=== PATIENT | female | born 1980 | race African-American/Black ===

== ENCOUNTER 2016-08-07 21:08 | Emergency (ER) | payer MEDICAID, OTHER ==
[~2016-08-07] VITALS: Ht 167.6 cm; Wt 108.9 kg
[2016-08-07] MEDS ORDERED: cloNIDine HCL 0.1 MG TAB PO ONE (21:15)
[2016-08-07 21:37] LABS: Basophils # (auto) 0 uL; Basophils % (auto) 0.7 % (0.0-2.0); Eosinophils # (auto) 0.2 uL; Eosinophils % (auto) 3.4 % (0.0-7.0); Hematocrit 40.9 % (36.0-46.0); Hemoglobin 13.6 g/dL (12.2-16.2); Lymphocytes # (auto) 1.9 uL; Mean Corpuscular Hgb Conc. 33.2 g/dL (32.0-36.0); Mean Corpuscular Volume 87.6 fL (80.0-100.0); Mean Platelet Volume 8.8 fL (7.4-10.4); Monocytes # (auto) 0.3 uL; Monocytes % (auto) 5.1 % (0.0-12.0); Neutrophils # (auto) 2.9 uL; Neutrophils % (auto) 54.8 % (37.0-80.0); Platelet Count (auto) 259 10^3/uL (140-450); Red Cell Distribution Width 15.7 % (11.6-16.0); White Blood Cell 5.3 10^3/uL (4.4-10.8)
[2016-08-07 21:53] LABS: Albumin 3.7 g/dL (3.4-5.0); BUN/Creatinine Ratio 22.6; Bilirubin, Total 0.3 mg/dL (0.2-1.0); Calcium 9.2 mg/dL (8.5-10.1); Potassium 3.9 mmol/L (3.5-5.1); Total Protein 6.9 g/dL (6.4-8.2)
[2016-08-07 22:02] LABS: INR 1.01 (0.9-1.15); Partial Thromboplastin Time 25.8 sec (22.64-33.71); Prothrombin Time 10.4 sec (9.37-12.3)
[2016-08-07 22:03] LABS: B-Type Natriuretic Peptide 225.6 pg/mL (0-100); Temperature: 22.7 C (20.0-25.0)
[2016-08-08] MEDS ORDERED: LISINOPRIL 20 MG TAB PO ONE (09:30)
[2016-08-08 10:02] VITALS: BP 147/114
== END 2016-08-08 10:27 | disposition home or self-care (01) ==
LOC: EDBD 21:08 → ER 21:11
DX: I10 Essential (primary) hypertension (principal); F31.9 Bipolar disorder, unspecified; H54.0 Blindness, both eyes; R61 Generalized hyperhidrosis; E66.9 Obesity, unspecified; Z68.38 Body mass index [BMI] 38.0-38.9, adult
CPT/HCPCS: 36415; 80053; 81025; 83880; 84484; 85025; 85610; 85730; 93005; 99285; G0434; J7040

== ENCOUNTER 2018-03-10 20:00 | Inpatient (IN) | payer MEDICAID ==
[~2018-03-10] VITALS: Ht 167.6 cm; Wt 108.7 kg
[2018-03-10] MEDS ORDERED: cloNIDine HCL 0.1 MG TAB PO ONE (21:00)
[2018-03-10] MEDS ORDERED: GENTAMICIN OPTH sol 0.3% 5ml EACHEYE ONE (21:00)
[2018-03-10 21:02] LABS: Hematocrit 34.7 % (36.0-46.0); Hemoglobin 11.3 g/dL (12.2-16.2); Mean Corpuscular Hemoglobin 29.1 pg (28.0-32.0); Mean Corpuscular Hgb Conc. 32.6 g/dL (32.0-36.0); Mean Corpuscular Volume 89.2 fL (80.0-100.0); Platelet Count (auto) 146 10^3/uL (140-450); Red Blood Cells 3.88 10^6/uL (4.0-5.20); Red Cell Distribution Width 18.5 % (11.8-14.3); White Blood Cell 5.2 10^3/uL (4.4-10.8)
[2018-03-10 21:06] LABS: Basophils % (manual) 0 (0.0-2.0); Blast Cells 0; Eosinophils % (manual) 0 (0-7); Metamyelocytes % 0; Myelocytes % 0; Promyelocytes % 0; Reactive Lymphocytes 0
[2018-03-10 21:12] LABS: Alanine Aminotransferase 40 U/L (13-56); Albumin 2.9 g/dL (3.4-5.0); Anion Gap 11 (5-15); Aspartate Aminotransferase 36 U/L (15-37); BUN/Creatinine Ratio 12.8; Blood Alcohol < 3.0 mg/dL (0-5); Blood Urea Nitrogen 15 mg/dL (7-18); Calcium 8.7 mg/dL (8.5-10.1); Carbon Dioxide 29 mmol/L (21-32); Chloride 107 mmol/L (98-107); GFR African American 67 mL/min; GFR Non-African American 56 mL/min; Glucose 98 mg/dL (74-106); Magnesium 2.1 mg/dL (1.6-2.6); Potassium 3.4 mmol/L (3.5-5.1); Sodium 147 mmol/L (136-145)
[2018-03-10 21:12] LABS: Lactic Acid w/Reflex 3.1 mmol/L (0.4-2.0)
[2018-03-10 21:16] LABS: Alkaline Phosphatase 44 U/L (45-117); Bilirubin, Total 0.5 mg/dL (0.2-1.0); Total Protein 7.3 g/dL (6.4-8.2)
[2018-03-10] MEDS ORDERED: cloNIDine HCL 0.1 MG TAB ONE (21:16)
[2018-03-10 21:41] LABS: Alcohol, Urine < 3.0 mg/dL (0-5); Amphetamine Screen, Urine NEGATIVE (NEGATIVE); Barbiturate Scree,Urine NEGATIVE (NEGATIVE); Benzodiazephine Screen, Urine POSITIVE (NEGATIVE); Cannabinoid Screen, Urine NEGATIVE (NEGATIVE); Cocaine Screen, Urine NEGATIVE (NEGATIVE); Opiate Scree,Urine NEGATIVE (NEGATIVE); Phencyclidine Screen, Urine NEGATIVE (NEGATIVE)
[2018-03-10 21:46] LABS: Acetaminophen < 2.0 ug/mL (10-30); Salicylate < 1.7 mg/dL (2.8-20.0)
[2018-03-10 21:57] LABS: Urine Bacteria NONE SEEN /hpf (None Seen); Urine Blood Negative /uL (Negative); Urine Mucus FEW (None Seen); Urine Specific Gravity 1.016 (1.001-1.035); Urine WBC 1 /hpf (0 - 5)
[2018-03-10 22:00] VITALS: BP 123/58
[2018-03-10 22:00] LABS: Band Neutrophils % (manual) 2; Lymphocytes % (manual) 12 (10.0-50.0); Monocytes % (manual) 26 (0-12)
[2018-03-10] MEDS ORDERED: LEVOFLOXACIN 750MG 150 ML IV ONE (23:15)
[2018-03-10] MEDS ORDERED: IOHEXOL 350 MG/ML 100ML IJ ONE (23:16)
[2018-03-10] MEDS ORDERED: MORPHINE SULF INJ 2 MG/ML SYRINGE 1ML IV PRN (23:45)
[2018-03-10] MEDS ORDERED: NITROGLYCERIN 0.4 MG SL TAB SL ONE (23:45)
[2018-03-10] MEDS ORDERED: NITROGLYCERIN 0.4 MG SL TAB SL PRN (23:45)
[2018-03-10] MEDS ORDERED: cloNIDine HCL 0.1 MG TAB PO PRN (23:45)
[2018-03-10] MEDS ORDERED: ASPirin-EC 325mg tab PO ONE (23:45)
[2018-03-11] VITALS (8 sets, daily range): BP systolic 141–189; BP diastolic 86–113
[2018-03-11] MEDS ORDERED: RISP2TAB62 PO (05:09)
[2018-03-11] MEDS ORDERED: SERT-274 PO (05:10)
[2018-03-11] MEDS ORDERED: OLAN10TA29 PO (05:11)
[2018-03-11] MEDS ORDERED: BENZ2TAB2 PO (05:16)
[2018-03-11] MEDS ORDERED: DIVA500T4 PO (05:16)
[2018-03-11] MEDS ORDERED: CLON1TAB PO (05:16)
[2018-03-11] MEDS ORDERED: METOPROLOL TARTRATE 50 MG TAB PO ONE (07:00)
[2018-03-11] MEDS ORDERED: AZITHROMYCIN 500MG/ 250ML 250 ML IV ONE (07:00)
[2018-03-11] MEDS: SOD CHL 0.45% WITH 20MEQ KCL 1,000 ML IV SCH ×2 (07:43→22:48)
[2018-03-11 08:26] LABS: Hematocrit 34.1 % (36.0-46.0); Hemoglobin 11.1 g/dL (12.2-16.2); Mean Corpuscular Hemoglobin 29.1 pg (28.0-32.0); Mean Corpuscular Hgb Conc. 32.4 g/dL (32.0-36.0); Mean Corpuscular Volume 89.6 fL (80.0-100.0); Platelet Count (auto) 144 10^3/uL (140-450); Red Blood Cells 3.81 10^6/uL (4.0-5.20); Red Cell Distribution Width 19.1 % (11.8-14.3); White Blood Cell 3.9 10^3/uL (4.4-10.8)
[2018-03-11 08:39] LABS: Band Neutrophils % (manual) 0; Basophils % (manual) 0 (0.0-2.0); Blast Cells 0; Eosinophils % (manual) 0 (0-7); Metamyelocytes % 0; Myelocytes % 0; Promyelocytes % 0; Reactive Lymphocytes 0
[2018-03-11 08:40] LABS: BUN/Creatinine Ratio 14.9; Calcium 8.4 mg/dL (8.5-10.1); INR 1.04 (0.9-1.15); Potassium 3.7 mmol/L (3.5-5.1); Prothrombin Time 11.1 sec (9.27-12.13)
[2018-03-11 09:30] LABS: Lymphocytes % (manual) 39 (10.0-50.0); Monocytes % (manual) 15 (0-12)
[2018-03-11] MEDS ORDERED: LABETALOL HCL 5 MG/ML ML 20ML VIAL IV PRN (09:30)
[2018-03-11] MEDS ORDERED: ASPirin 81 mg TAB PO SCH (10:00)
[2018-03-11] MEDS ORDERED: METOPROLOL TARTRATE 50 MG TAB PO SCH (10:00)
[2018-03-11] MEDS ORDERED: amLODIPine BESYLATE 5 MG TAB PO SCH (10:00)
[2018-03-11] MEDS: ASPirin 81 mg TAB PO SCH (10:37)
[2018-03-11] MEDS: cefTRIAXone 1GM/10ml IVPUSH 10 ML IV SCH (10:37)
[2018-03-11] MEDS: LABETALOL HCL 5 MG/ML ML 20ML VIAL IV SCH ×4 (10:38→22:53)
[2018-03-11] MEDS: amLODIPine BESYLATE 5 MG TAB PO SCH (12:34)
[2018-03-11] MEDS ORDERED: LISINOPRIL 20 MG TAB PO ONE (17:45)
[2018-03-11] MEDS: ATORVASTATIN 20 MG TAB PO SCH ×2 (22:00→22:49)
[2018-03-11] MEDS: METOPROLOL TARTRATE 50 MG TAB PO SCH (22:50)
[2018-03-11] MEDS: LISINOPRIL 20 MG TAB PO SCH (22:51)
[2018-03-12] MEDS ORDERED: METOPROLOL TARTRATE 50 MG TAB PO ONE (01:30)
[2018-03-12] MEDS ORDERED: AZITHROMYCIN 500MG/ 250ML 250 ML IV ONE (01:30)
[2018-03-12] MEDS ORDERED: SODIUM CHLORIDE 0.9% 1,000 ML IV ONE (01:30)
[2018-03-12] MEDS ORDERED: LEVOFLOXACIN 750MG 150 ML IV ONE (01:30)
[2018-03-12] MEDS ORDERED: SOD CHL 0.45% WITH 20MEQ KCL 1,000 ML IV SCH (01:30)
[2018-03-12] MEDS: LABETALOL HCL 5 MG/ML ML 20ML VIAL IV SCH ×6 (03:04→23:06)
[2018-03-12 05:00] VITALS: BP 148/81
[2018-03-12 06:58] LABS: Hematocrit 33.2 % (36.0-46.0); Hemoglobin 11.1 g/dL (12.2-16.2); Mean Corpuscular Hemoglobin 29.7 pg (28.0-32.0); Mean Corpuscular Hgb Conc. 33.4 g/dL (32.0-36.0); Mean Corpuscular Volume 88.9 fL (80.0-100.0); Platelet Count (auto) 140 10^3/uL (140-450); Red Blood Cells 3.73 10^6/uL (4.0-5.20); Red Cell Distribution Width 18.2 % (11.8-14.3); White Blood Cell 4.2 10^3/uL (4.4-10.8)
[2018-03-12 07:12] LABS: Band Neutrophils % (manual) 0; Basophils % (manual) 0 (0.0-2.0); Blast Cells 0; Eosinophils % (manual) 0 (0-7); Metamyelocytes % 0; Myelocytes % 0; Promyelocytes % 0; Reactive Lymphocytes 0
[2018-03-12 07:24] LABS: Albumin 2.5 g/dL (3.4-5.0); BUN/Creatinine Ratio 14.3; Bilirubin, Total 0.6 mg/dL (0.2-1.0); Calcium 8.4 mg/dL (8.5-10.1); Potassium 3.7 mmol/L (3.5-5.1); Total Protein 6.6 g/dL (6.4-8.2)
[2018-03-12 07:51] LABS: Lymphocytes % (manual) 25 (10.0-50.0); Monocytes % (manual) 28 (0-12)
[2018-03-12] MEDS: cefTRIAXone 1GM/10ml IVPUSH 10 ML IV SCH (08:44)
[2018-03-12] MEDS: traMADol HCL 50 MG TAB PO PRN (08:44)
[2018-03-12 09:00] VITALS: BP 128/68
[2018-03-12] MEDS: SOD CHL 0.45% WITH 20MEQ KCL 1,000 ML IV SCH ×2 (09:40→23:08)
[2018-03-12] MEDS ORDERED: AZITHROMYCIN 500MG/ 250ML 250 ML IV SCH (10:00)
[2018-03-12] MEDS ORDERED: VANCOMYCIN PER PHARMACY 0 MG IV SCH (10:15)
[2018-03-12] MEDS: ASPirin 81 mg TAB PO SCH (10:27)
[2018-03-12] MEDS: AZITHROMYCIN 500MG/ 250ML 250 ML IV SCH (10:27)
[2018-03-12] MEDS: risperiDONE 1 MG TAB PO SCH ×2 (10:28→23:07)
[2018-03-12] MEDS: SERTRALINE HCL 50 MG TAB PO SCH (10:28)
[2018-03-12] MEDS: VANCOMYCIN 1,250 MG in D5W 5% 250 ML IV SCH ×2 (11:47→19:39)
[2018-03-12 13:00] VITALS: BP 156/95
[2018-03-12] MEDS: METOPROLOL TARTRATE 50 MG TAB PO SCH ×2 (14:20→23:07)
[2018-03-12] MEDS: LISINOPRIL 20 MG TAB PO SCH ×2 (14:22→23:08)
[2018-03-12] MEDS: amLODIPine BESYLATE 5 MG TAB PO SCH (14:23)
[2018-03-12 17:00] VITALS: BP 167/109
[2018-03-12 22:00] VITALS: BP 180/118
[2018-03-12] MEDS: ATORVASTATIN 20 MG TAB PO SCH (23:07)
[2018-03-13] VITALS (8 sets, daily range): BP systolic 121–180; BP diastolic 86–118
[2018-03-13] MEDS: LABETALOL HCL 5 MG/ML ML 20ML VIAL IV SCH ×6 (02:34→22:48)
[2018-03-13] MEDS: traMADol HCL 50 MG TAB PO PRN (06:06)
[2018-03-13 07:16] LABS: Potassium 4.1 mmol/L (3.5-5.1)
[2018-03-13 07:20] LABS: Albumin 2.3 g/dL (3.4-5.0); BUN/Creatinine Ratio 13.1; Calcium 8.4 mg/dL (8.5-10.1)
[2018-03-13 07:23] LABS: Bilirubin, Total 0.6 mg/dL (0.2-1.0); Total Protein 6.6 g/dL (6.4-8.2)
[2018-03-13 07:47] LABS: Hematocrit 31.9 % (36.0-46.0); Hemoglobin 10.7 g/dL (12.2-16.2); Mean Corpuscular Hemoglobin 29.7 pg (28.0-32.0); Mean Corpuscular Hgb Conc. 33.7 g/dL (32.0-36.0); Mean Corpuscular Volume 88.3 fL (80.0-100.0); Platelet Count (auto) 162 10^3/uL (140-450); Red Blood Cells 3.61 10^6/uL (4.0-5.20); Red Cell Distribution Width 18.9 % (11.8-14.3); White Blood Cell 4.7 10^3/uL (4.4-10.8)
[2018-03-13 07:51] LABS: Band Neutrophils % (manual) 0; Basophils % (manual) 0 (0.0-2.0); Blast Cells 0; Metamyelocytes % 0; Myelocytes % 0; Promyelocytes % 0; Reactive Lymphocytes 0
[2018-03-13 08:10] LABS: Eosinophils % (manual) 1 (0-7); Lymphocytes % (manual) 26 (10.0-50.0); Monocytes % (manual) 21 (0-12)
[2018-03-13] MEDS: SERTRALINE HCL 50 MG TAB PO SCH (09:38)
[2018-03-13] MEDS: cefTRIAXone 1GM/10ml IVPUSH 10 ML IV SCH (09:38)
[2018-03-13] MEDS: ASPirin 81 mg TAB PO SCH (09:39)
[2018-03-13] MEDS: risperiDONE 1 MG TAB PO SCH ×2 (09:39→21:25)
[2018-03-13] MEDS: METOPROLOL TARTRATE 50 MG TAB PO SCH ×2 (09:41→21:30)
[2018-03-13] MEDS: LISINOPRIL 20 MG TAB PO SCH ×2 (09:42→21:24)
[2018-03-13] MEDS: AZITHROMYCIN 500MG/ 250ML 250 ML IV SCH (09:43)
[2018-03-13] MEDS: amLODIPine BESYLATE 5 MG TAB PO SCH (09:43)
[2018-03-13] MEDS: VANCOMYCIN 1,250 MG in D5W 5% 250 ML IV SCH ×2 (11:55→23:33)
[2018-03-13] MEDS: SOD CHL 0.45% WITH 20MEQ KCL 1,000 ML IV SCH ×2 (12:32→23:33)
[2018-03-13] MEDS: ATORVASTATIN 20 MG TAB PO SCH (21:25)
[2018-03-13] MEDS ORDERED: LORazepam 2MG/ML-1ML VIAL IV PRN (21:45)
[2018-03-14] MEDS: LABETALOL HCL 5 MG/ML ML 20ML VIAL IV SCH ×5 (03:00→18:48)
[2018-03-14 05:00] VITALS: BP 137/90
[2018-03-14 07:26] LABS: Basophils # (auto) 0.1 uL; Basophils % (auto) 1.2 % (0.0-2.0); Eosinophils # (auto) 0.2 uL; Eosinophils % (auto) 4.5 % (0.0-7.0); Hematocrit 33.3 % (36.0-46.0); Hemoglobin 11.2 g/dL (12.2-16.2); Lymphocytes # (auto) 1.3 uL; Lymphocytes % (auto) 25.9 % (10.0-50.0); Mean Corpuscular Hemoglobin 29.4 pg (28.0-32.0); Mean Corpuscular Hgb Conc. 33.5 g/dL (32.0-36.0); Monocytes # (auto) 0.8 uL; Monocytes % (auto) 16.7 % (0.0-12.0); Neutrophils # (auto) 2.6 uL; Neutrophils % (auto) 51.7 % (37.0-80.0); Nucleated Red Blood Cells % 0.1 %; Platelet Count (auto) 196 10^3/uL (140-450); Red Blood Cells 3.79 10^6/uL (4.0-5.20); Red Cell Distribution Width 18.5 % (11.8-14.3)
[2018-03-14 07:48] LABS: Albumin 2.7 g/dL (3.4-5.0); BUN/Creatinine Ratio 15.2; Bilirubin, Total 0.6 mg/dL (0.2-1.0); Calcium 8.8 mg/dL (8.5-10.1); Total Protein 7.3 g/dL (6.4-8.2)
[2018-03-14 08:00] VITALS: BP 136/96
[2018-03-14 09:00] VITALS: BP 136/96
[2018-03-14] MEDS: AZITHROMYCIN 500MG/ 250ML 250 ML IV SCH (10:55)
[2018-03-14] MEDS: ASPirin 81 mg TAB PO SCH (10:55)
[2018-03-14] MEDS: cefTRIAXone 1GM/10ml IVPUSH 10 ML IV SCH (10:55)
[2018-03-14] MEDS: LISINOPRIL 20 MG TAB PO SCH (10:56)
[2018-03-14] MEDS: risperiDONE 1 MG TAB PO SCH (10:56)
[2018-03-14] MEDS: METOPROLOL TARTRATE 50 MG TAB PO SCH (10:56)
[2018-03-14] MEDS: amLODIPine BESYLATE 5 MG TAB PO SCH (10:57)
[2018-03-14] MEDS: SERTRALINE HCL 50 MG TAB PO SCH (10:57)
[2018-03-14] MEDS ORDERED: VANCOMYCIN 1,500 MG in D5W 5% 250 ML IV SCH (11:00)
[2018-03-14] MEDS: SOD CHL 0.45% WITH 20MEQ KCL 1,000 ML IV SCH (15:00)
[2018-03-14 17:45] VITALS: BP 145/99
== END 2018-03-14 18:50 | disposition home or self-care (01) | DRG 720 ==
LOC: EDBD 20:00 → ER 20:00 → TELE 20:01 → TELE-WESTW 03-11 02:30
PROVIDERS: ADMIT Internal Medicine; ATTEND Internal Medicine
DX: A41.9 Sepsis, unspecified organism (principal); G93.41 Metabolic encephalopathy; J18.9 Pneumonia, unspecified organism; E44.0 Moderate protein-calorie malnutrition; I11.9 Hypertensive heart disease without heart failure; D64.9 Anemia, unspecified; E11.9 Type 2 diabetes mellitus without complications; E66.01 Morbid (severe) obesity due to excess calories; J98.11 Atelectasis; M17.11 Unilateral primary osteoarthritis, right knee; H44.529 Atrophy of globe, unspecified eye; F20.9 Schizophrenia, unspecified; F31.9 Bipolar disorder, unspecified; M71.20 Synovial cyst of popliteal space [Baker], unspecified knee; M67.40 Ganglion, unspecified site; H54.7 Unspecified visual loss; M25.461 Effusion, right knee; F17.200 Nicotine dependence, unspecified, uncomplicated; Z82.49 Family history of ischemic heart disease and other diseases of the circulatory system; Z83.3 Family history of diabetes mellitus; Z91.19 Patient's noncompliance with other medical treatment and regimen; Z68.38 Body mass index [BMI] 38.0-38.9, adult
CPT/HCPCS: 36415; 70450; 71045; 71260; 73700; 80048; 80053; 80202; 80307; 80320; 80329; 81001; 83605; 83735; 84484; 84702; 85007; 85025; 85027; 85610; 85730; 87040; 87081; 87205; 89051; 93005; 93306; 96365; 96375; 96376; 97163; 99291; A6257; J0696; J7060

== ENCOUNTER 2018-03-20 12:10 | Inpatient (IN) | payer MEDICAID ==
[~2018-03-20] VITALS: Ht 167.6 cm; Wt 106.6 kg
[~2018-03-20 12:10] MED LIST: BENZ2TAB2 PO; CLON1TAB PO; DIVA500T4 PO; OLAN10TA29 PO; RISP2TAB62 PO; SERT-274 PO
[2018-03-20] MEDS ORDERED: SODIUM CHLORIDE 0.9% 500 ML IVB ONE (12:49)
[2018-03-20 13:52] LABS: Basophils # (auto) 0 uL; Basophils % (auto) 0.4 % (0.0-2.0); Eosinophils # (auto) 0.1 uL; Eosinophils % (auto) 1.5 % (0.0-7.0); Hematocrit 32.7 % (36.0-46.0); Hemoglobin 10.6 g/dL (12.2-16.2); Lymphocytes # (auto) 0.8 uL; Lymphocytes % (auto) 21.3 % (10.0-50.0); Mean Corpuscular Hemoglobin 28.8 pg (28.0-32.0); Mean Corpuscular Hgb Conc. 32.3 g/dL (32.0-36.0); Monocytes # (auto) 0.3 uL; Monocytes % (auto) 6.8 % (0.0-12.0); Neutrophils # (auto) 2.6 uL; Platelet Count (auto) 185 10^3/uL (140-450); Red Blood Cells 3.67 10^6/uL (4.0-5.20); Red Cell Distribution Width 18.4 % (11.8-14.3); White Blood Cell 3.7 10^3/uL (4.4-10.8)
[2018-03-20 14:09] LABS: Albumin 2.3 g/dL (3.4-5.0); BUN/Creatinine Ratio 15.1; Bilirubin, Total 0.3 mg/dL (0.2-1.0); Calcium 7.9 mg/dL (8.5-10.1); Potassium 3.5 mmol/L (3.5-5.1); Total Protein 5.9 g/dL (6.4-8.2)
[2018-03-20 14:10] LABS: Blood Alcohol < 3.0 mg/dL (0-5)
[2018-03-20] MEDS ORDERED: LEVOFLOXACIN 500MG 100 ML IV ONE (15:30)
[2018-03-20] MEDS ORDERED: CEPH-37 PO (17:56)
[2018-03-20] MEDS ORDERED: LISI-711 PO (17:56)
[2018-03-20] MEDS ORDERED: MET50T PO (17:56)
[2018-03-20] MEDS ORDERED: SERT-135 PO (17:56)
[2018-03-20] MEDS: SODIUM CHLORIDE 0.9% 1,000 ML IV SCH (18:05)
[2018-03-20] MEDS ORDERED: LACTULOSE 20Gm/30ML SOLN PO PRN (18:15)
[2018-03-20] MEDS ORDERED: ACETAMINOPHEN 500 MG TAB PO PRN (18:15)
[2018-03-20] MEDS ORDERED: DEXTROSE (50%) 50ML SYRG IV PRN (18:15)
[2018-03-20] MEDS ORDERED: PROMETHAZINE HCL 25 MG/ML 1ML IV PRN (18:15)
[2018-03-20] MEDS ORDERED: ALBUTEROL SULF 2.5 MG/0.5ML(0.5%) NEB SOLN NEB PRN (18:15)
[2018-03-20] MEDS ORDERED: MORPHINE SULF INJ 2 MG/ML SYRINGE 1ML IV PRN (18:15)
[2018-03-20] MEDS ORDERED: HYDROcodone-ACET 5/325MG TAB PO PRN (18:15)
[2018-03-20] MEDS ORDERED: NITROGLYCERIN 0.4 MG SL TAB SL PRN (18:15)
[2018-03-20] MEDS ORDERED: risperiDONE 1 MG TAB PO PRN (18:30)
[2018-03-20] MEDS ORDERED: ASPirin 81 mg TAB PO ONE (18:30)
[2018-03-20 18:49] LABS: CRP High Sensitivity 0.86 mg/dL (< 0.3)
[2018-03-20 18:55] LABS: Folate (Folic Acid) 9.62 ng/mL (5.38-24)
[2018-03-20] MEDS: cefTRIAXone 1GM/10ml IVPUSH 10 ML IV SCH (20:19)
[2018-03-20] MEDS: BENZTROPINE MESY 0.5 MG TAB PO SCH (21:23)
[2018-03-20] MEDS: ATORVASTATIN 20 MG TAB PO SCH (21:24)
[2018-03-20] MEDS: METOPROLOL TARTRATE 50 MG TAB PO SCH (21:25)
[2018-03-20] MEDS: risperiDONE 1 MG TAB PO SCH (21:26)
[2018-03-20] MEDS: OLANZapine 5 MG TAB PO SCH (21:26)
[2018-03-20] MEDS: clonazePAM 0.5 MG TAB PO SCH (21:27)
[2018-03-20] MEDS: AZITHROMYCIN 500MG/ 250ML 250 ML IV SCH (21:36)
[2018-03-20] MEDS: ACCU-CHEK COMFORT CURVE STRIP VI SCH (23:04)
[2018-03-20] MEDS: InsuLIN REG 1unit/0.01ml Soln (100units/ml) SC SCH (23:18)
[2018-03-21] MEDS: ALBUTEROL SULF 2.5 MG/0.5ML(0.5%) NEB SOLN NEB SCH ×4 (00:40→19:20)
[2018-03-21 03:13] VITALS: BP 145/88
[2018-03-21] MEDS: SODIUM CHLORIDE 0.9% 1,000 ML IV SCH ×2 (06:44→19:05)
[2018-03-21] MEDS: ACCU-CHEK COMFORT CURVE STRIP VI SCH ×4 (06:52→21:39)
[2018-03-21] MEDS: InsuLIN REG 1unit/0.01ml Soln (100units/ml) SC SCH ×4 (06:53→21:39)
[2018-03-21 07:32] LABS: Basophils # (auto) 0 uL; Basophils % (auto) 0.6 % (0.0-2.0); Eosinophils # (auto) 0.1 uL; Eosinophils % (auto) 2.5 % (0.0-7.0); Hematocrit 32.6 % (36.0-46.0); Lymphocytes # (auto) 1.1 uL; Lymphocytes % (auto) 32.1 % (10.0-50.0); Mean Corpuscular Hemoglobin 29.7 pg (28.0-32.0); Mean Corpuscular Hgb Conc. 33.8 g/dL (32.0-36.0); Monocytes # (auto) 0.2 uL; Monocytes % (auto) 6.7 % (0.0-12.0); Neutrophils # (auto) 2.1 uL; Neutrophils % (auto) 58.1 % (37.0-80.0); Nucleated Red Blood Cells % 0.2 %; Platelet Count (auto) 182 10^3/uL (140-450); Red Blood Cells 3.71 10^6/uL (4.0-5.20); White Blood Cell 3.6 10^3/uL (4.4-10.8)
[2018-03-21 07:52] LABS: Cholesterol 145 mg/dL (< 200); HDL Cholesterol 28 mg/dL (40-59); LDL Cholesterol 106 mg/dL (< 100); Triglycerides 155 mg/dL (< 150)
[2018-03-21] MEDS: cefTRIAXone 1GM/10ml IVPUSH 10 ML IV SCH (09:00)
[2018-03-21] MEDS: METOPROLOL TARTRATE 50 MG TAB PO SCH ×2 (10:00→21:31)
[2018-03-21] MEDS: risperiDONE 1 MG TAB PO SCH ×2 (10:00→21:31)
[2018-03-21] MEDS: ASPirin 81 mg TAB PO SCH (10:00)
[2018-03-21] MEDS: AZITHROMYCIN 500MG/ 250ML 250 ML IV SCH (10:00)
[2018-03-21] MEDS: OLANZapine 5 MG TAB PO SCH ×2 (10:00→21:30)
[2018-03-21] MEDS: SERTRALINE HCL 50 MG TAB PO SCH (10:00)
[2018-03-21 13:00] VITALS: BP 125/72
[2018-03-21 14:07] VITALS: BP 125/72
[2018-03-21 17:31] VITALS: BP 134/68
[2018-03-21 20:20] VITALS: BP 134/68
[2018-03-21] MEDS: clonazePAM 0.5 MG TAB PO SCH (21:33)
[2018-03-21] MEDS: ATORVASTATIN 20 MG TAB PO SCH (21:34)
[2018-03-21] MEDS: BENZTROPINE MESY 0.5 MG TAB PO SCH (21:35)
[2018-03-21 22:00] VITALS: BP 170/110
[2018-03-21] MEDS: LABETALOL HCL 5 MG/ML ML 20ML VIAL IV PRN (23:38)
[2018-03-22] MEDS: ALBUTEROL SULF 2.5 MG/0.5ML(0.5%) NEB SOLN NEB SCH ×4 (00:46→19:37)
[2018-03-22] MEDS: LABETALOL HCL 5 MG/ML ML 20ML VIAL IV PRN ×2 (01:59→04:24)
[2018-03-22 05:41] VITALS: BP 150/100
[2018-03-22] MEDS: InsuLIN REG 1unit/0.01ml Soln (100units/ml) SC SCH ×4 (06:35→21:45)
[2018-03-22] MEDS: ACCU-CHEK COMFORT CURVE STRIP VI SCH ×4 (06:35→21:45)
[2018-03-22] MEDS: SODIUM CHLORIDE 0.9% 1,000 ML IV SCH ×2 (07:35→20:05)
[2018-03-22 08:08] LABS: Basophils # (auto) 0 uL; Basophils % (auto) 0.6 % (0.0-2.0); Eosinophils # (auto) 0.1 uL; Eosinophils % (auto) 2.4 % (0.0-7.0); Hematocrit 33.3 % (36.0-46.0); Hemoglobin 11.1 g/dL (12.2-16.2); Lymphocytes # (auto) 1.2 uL; Lymphocytes % (auto) 31.5 % (10.0-50.0); Mean Corpuscular Hemoglobin 29.2 pg (28.0-32.0); Mean Corpuscular Hgb Conc. 33.4 g/dL (32.0-36.0); Mean Corpuscular Volume 87.5 fL (80.0-100.0); Monocytes # (auto) 0.3 uL; Monocytes % (auto) 7.8 % (0.0-12.0); Neutrophils # (auto) 2.2 uL; Neutrophils % (auto) 57.7 % (37.0-80.0); Platelet Count (auto) 174 10^3/uL (140-450); Red Cell Distribution Width 18.1 % (11.8-14.3); White Blood Cell 3.9 10^3/uL (4.4-10.8)
[2018-03-22 08:30] LABS: Albumin 2.6 g/dL (3.4-5.0); Bilirubin, Total 0.4 mg/dL (0.2-1.0); Calcium 8.7 mg/dL (8.5-10.1); Potassium 3.5 mmol/L (3.5-5.1)
[2018-03-22] MEDS: AZITHROMYCIN 500MG/ 250ML 250 ML IV SCH (09:42)
[2018-03-22] MEDS: risperiDONE 1 MG TAB PO SCH ×2 (09:43→21:44)
[2018-03-22] MEDS: cefTRIAXone 1GM/10ml IVPUSH 10 ML IV SCH (09:43)
[2018-03-22] MEDS: LISINOPRIL 10 MG TAB PO SCH ×2 (09:44→21:44)
[2018-03-22] MEDS: METOPROLOL TARTRATE 50 MG TAB PO SCH ×2 (09:45→21:44)
[2018-03-22] MEDS: SERTRALINE HCL 50 MG TAB PO SCH (09:46)
[2018-03-22] MEDS: ASPirin 81 mg TAB PO SCH (09:46)
[2018-03-22] MEDS: OLANZapine 5 MG TAB PO SCH ×2 (09:46→21:45)
[2018-03-22] MEDS ORDERED: LISINOPRIL 20 MG TAB PO SCH (10:00)
[2018-03-22] MEDS: clonazePAM 0.5 MG TAB PO SCH (21:43)
[2018-03-22] MEDS: ATORVASTATIN 20 MG TAB PO SCH (21:43)
[2018-03-22] MEDS: BENZTROPINE MESY 0.5 MG TAB PO SCH (21:43)
[2018-03-22 22:00] VITALS: BP 140/91
[2018-03-23] VITALS (7 sets, daily range): BP systolic 107–152; BP diastolic 38–102
[2018-03-23 01:41] LABS: Urine Bacteria NONE SEEN /hpf (None Seen); Urine Blood Negative /uL (Negative); Urine WBC <1 /hpf (0 - 5)
[2018-03-23 02:12] LABS: Alcohol, Urine < 3.0 mg/dL (0-5); Amphetamine Screen, Urine NEGATIVE (NEGATIVE); Barbiturate Scree,Urine NEGATIVE (NEGATIVE); Benzodiazephine Screen, Urine NEGATIVE (NEGATIVE); Cannabinoid Screen, Urine NEGATIVE (NEGATIVE); Cocaine Screen, Urine NEGATIVE (NEGATIVE); Opiate Scree,Urine NEGATIVE (NEGATIVE); Phencyclidine Screen, Urine NEGATIVE (NEGATIVE)
[2018-03-23] MEDS: InsuLIN REG 1unit/0.01ml Soln (100units/ml) SC SCH ×3 (06:35→22:22)
[2018-03-23] MEDS: ACCU-CHEK COMFORT CURVE STRIP VI SCH ×3 (06:35→22:22)
[2018-03-23] MEDS: ALBUTEROL SULF 2.5 MG/0.5ML(0.5%) NEB SOLN NEB SCH ×4 (06:50→19:28)
[2018-03-23 07:52] LABS: BUN/Creatinine Ratio 14.8; Calcium 8.5 mg/dL (8.5-10.1); Potassium 3.8 mmol/L (3.5-5.1)
[2018-03-23] MEDS: METOPROLOL TARTRATE 50 MG TAB PO SCH ×2 (10:00→22:23)
[2018-03-23] MEDS: SODIUM CHLORIDE 0.9% 1,000 ML IV SCH ×2 (10:08→21:05)
[2018-03-23] MEDS: AZITHROMYCIN 500MG/ 250ML 250 ML IV SCH (10:08)
[2018-03-23] MEDS: cefTRIAXone 1GM/10ml IVPUSH 10 ML IV SCH (10:08)
[2018-03-23] MEDS: SERTRALINE HCL 50 MG TAB PO SCH (10:09)
[2018-03-23] MEDS: ASPirin 81 mg TAB PO SCH (10:09)
[2018-03-23] MEDS: risperiDONE 1 MG TAB PO SCH ×2 (10:09→22:24)
[2018-03-23] MEDS: OLANZapine 5 MG TAB PO SCH ×2 (10:09→22:24)
[2018-03-23] MEDS: LISINOPRIL 10 MG TAB PO SCH ×2 (10:10→22:24)
[2018-03-23] MEDS: clonazePAM 0.5 MG TAB PO SCH (22:23)
[2018-03-23] MEDS: BENZTROPINE MESY 0.5 MG TAB PO SCH (22:23)
[2018-03-23] MEDS: ATORVASTATIN 20 MG TAB PO SCH (22:23)
[2018-03-24 05:00] VITALS: BP 129/89
[2018-03-24] MEDS: ALBUTEROL SULF 2.5 MG/0.5ML(0.5%) NEB SOLN NEB SCH ×4 (06:01→19:00)
[2018-03-24] MEDS: ACCU-CHEK COMFORT CURVE STRIP VI SCH ×4 (06:28→22:22)
[2018-03-24] MEDS: InsuLIN REG 1unit/0.01ml Soln (100units/ml) SC SCH ×4 (06:28→22:00)
[2018-03-24 08:00] VITALS: BP 129/89
[2018-03-24] MEDS ORDERED: ADENOSINE 89 MG in GIVE UN-DILUTED 0 ML IV STA (08:30)
[2018-03-24] MEDS: cefTRIAXone 1GM/10ml IVPUSH 10 ML IV SCH (09:00)
[2018-03-24 09:23] VITALS: BP 133/91
[2018-03-24] MEDS: SODIUM CHLORIDE 0.9% 1,000 ML IV SCH ×2 (09:35→22:34)
[2018-03-24] MEDS: OLANZapine 5 MG TAB PO SCH ×2 (10:00→22:19)
[2018-03-24] MEDS: LISINOPRIL 10 MG TAB PO SCH ×2 (10:00→22:17)
[2018-03-24] MEDS: SERTRALINE HCL 50 MG TAB PO SCH (10:00)
[2018-03-24] MEDS: AZITHROMYCIN 500MG/ 250ML 250 ML IV SCH (10:00)
[2018-03-24] MEDS: risperiDONE 1 MG TAB PO SCH ×2 (10:00→22:17)
[2018-03-24] MEDS: ASPirin 81 mg TAB PO SCH (10:00)
[2018-03-24] MEDS: METOPROLOL TARTRATE 50 MG TAB PO SCH ×2 (10:00→22:19)
[2018-03-24 13:00] VITALS: BP 128/89
[2018-03-24 20:15] VITALS: BP 197/105
[2018-03-24] MEDS: BENZTROPINE MESY 0.5 MG TAB PO SCH (22:14)
[2018-03-24] MEDS: clonazePAM 0.5 MG TAB PO SCH (22:16)
[2018-03-24] MEDS: ATORVASTATIN 20 MG TAB PO SCH (22:18)
[2018-03-25] MEDS: LABETALOL HCL 5 MG/ML ML 20ML VIAL IV PRN ×2 (00:26→02:02)
[2018-03-25] MEDS: ALBUTEROL SULF 2.5 MG/0.5ML(0.5%) NEB SOLN NEB SCH ×4 (00:52→20:09)
[2018-03-25] MEDS: MORPHINE SULF INJ 2 MG/ML SYRINGE 1ML IV PRN ×2 (02:02→10:49)
[2018-03-25] MEDS ORDERED: LISINOPRIL 20 MG TAB PO ONE (03:15)
[2018-03-25 05:00] VITALS: BP 178/78
[2018-03-25] MEDS: InsuLIN REG 1unit/0.01ml Soln (100units/ml) SC SCH ×4 (07:00→22:10)
[2018-03-25] MEDS: ACCU-CHEK COMFORT CURVE STRIP VI SCH ×5 (07:00→21:49)
[2018-03-25 07:32] VITALS: BP 165/107
[2018-03-25 07:35] VITALS: BP 178/78
[2018-03-25 08:45] LABS: Basophils # (auto) 0 uL; Basophils % (auto) 0.6 % (0.0-2.0); Eosinophils # (auto) 0.2 uL; Eosinophils % (auto) 3.9 % (0.0-7.0); Hematocrit 33.3 % (36.0-46.0); Lymphocytes # (auto) 1.8 uL; Lymphocytes % (auto) 36.1 % (10.0-50.0); Mean Corpuscular Hemoglobin 29.3 pg (28.0-32.0); Mean Corpuscular Hgb Conc. 33.1 g/dL (32.0-36.0); Mean Corpuscular Volume 88.4 fL (80.0-100.0); Monocytes # (auto) 0.2 uL; Monocytes % (auto) 4.5 % (0.0-12.0); Neutrophils # (auto) 2.7 uL; Neutrophils % (auto) 54.9 % (37.0-80.0); Nucleated Red Blood Cells % 0.1 %; Platelet Count (auto) 176 10^3/uL (140-450); Red Blood Cells 3.77 10^6/uL (4.0-5.20); Red Cell Distribution Width 18.2 % (11.8-14.3); White Blood Cell 4.9 10^3/uL (4.4-10.8)
[2018-03-25 09:25] LABS: Albumin 2.7 g/dL (3.4-5.0); BUN/Creatinine Ratio 21.5; Bilirubin, Total 0.4 mg/dL (0.2-1.0); Calcium 8.9 mg/dL (8.5-10.1); Potassium 3.9 mmol/L (3.5-5.1); Total Protein 6.8 g/dL (6.4-8.2)
[2018-03-25] MEDS: cefTRIAXone 1GM/10ml IVPUSH 10 ML IV SCH (09:34)
[2018-03-25] MEDS: AZITHROMYCIN 500MG/ 250ML 250 ML IV SCH (09:34)
[2018-03-25] MEDS: ASPirin 81 mg TAB PO SCH (09:35)
[2018-03-25] MEDS: risperiDONE 1 MG TAB PO SCH ×2 (09:35→21:45)
[2018-03-25] MEDS: LISINOPRIL 20 MG TAB PO SCH ×2 (09:35→21:46)
[2018-03-25] MEDS: OLANZapine 5 MG TAB PO SCH ×2 (09:35→21:46)
[2018-03-25] MEDS: METOPROLOL TARTRATE 50 MG TAB PO SCH ×2 (09:36→21:44)
[2018-03-25] MEDS: SERTRALINE HCL 50 MG TAB PO SCH (09:36)
[2018-03-25] MEDS: NIFEdipine ER 30 MG TAB PO SCH (10:47)
[2018-03-25] MEDS: SODIUM CHLORIDE 0.9% 1,000 ML IV SCH (10:48)
[2018-03-25 13:26] VITALS: BP 136/85
[2018-03-25 16:48] VITALS: BP 141/69
[2018-03-25] MEDS: BENZTROPINE MESY 0.5 MG TAB PO SCH (21:39)
[2018-03-25] MEDS: ATORVASTATIN 20 MG TAB PO SCH (21:43)
[2018-03-25] MEDS: clonazePAM 0.5 MG TAB PO SCH (21:43)
[2018-03-25 22:00] VITALS: BP 136/93
[2018-03-26] MEDS: ALBUTEROL SULF 2.5 MG/0.5ML(0.5%) NEB SOLN NEB SCH ×3 (01:17→12:13)
[2018-03-26] MEDS: InsuLIN REG 1unit/0.01ml Soln (100units/ml) SC SCH ×2 (07:00→12:19)
[2018-03-26] MEDS: ACCU-CHEK COMFORT CURVE STRIP VI SCH ×2 (07:00→12:20)
[2018-03-26 08:00] VITALS: BP 127/81
[2018-03-26] MEDS: OLANZapine 5 MG TAB PO SCH (10:29)
[2018-03-26] MEDS: cefTRIAXone 1GM/10ml IVPUSH 10 ML IV SCH (10:29)
[2018-03-26] MEDS: LISINOPRIL 20 MG TAB PO SCH (10:29)
[2018-03-26] MEDS: risperiDONE 1 MG TAB PO SCH (10:29)
[2018-03-26] MEDS: METOPROLOL TARTRATE 50 MG TAB PO SCH (10:30)
[2018-03-26] MEDS: ASPirin 81 mg TAB PO SCH (10:30)
[2018-03-26] MEDS: SERTRALINE HCL 50 MG TAB PO SCH (10:30)
[2018-03-26] MEDS: NIFEdipine ER 30 MG TAB PO SCH (10:30)
[2018-03-26] MEDS: AZITHROMYCIN 500MG/ 250ML 250 ML IV SCH (10:31)
[2018-03-26] MEDS: SODIUM CHLORIDE 0.9% 1,000 ML IV SCH ×2 (10:31→12:20)
[2018-03-26 11:53] VITALS: BP 127/81
[2018-03-26 13:00] VITALS: BP_SYST 136; BP_SYST 52; BP_DIAS 77; BP_DIAS 96
== END 2018-03-26 15:30 | disposition home or self-care (01) | DRG 204 ==
LOC: EDBD 12:10 → ER 12:10 → TELE 12:11 → TELE-CENTR 03-21 12:08
PROVIDERS: ADMIT Internal Medicine; ATTEND Internal Medicine
DX: R55 Syncope and collapse (principal); I11.0 Hypertensive heart disease with heart failure; E44.0 Moderate protein-calorie malnutrition; I50.30 Unspecified diastolic (congestive) heart failure; E83.51 Hypocalcemia; E66.01 Morbid (severe) obesity due to excess calories; M94.0 Chondrocostal junction syndrome [Tietze]; R41.82 Altered mental status, unspecified; E86.0 Dehydration; D64.9 Anemia, unspecified; E78.5 Hyperlipidemia, unspecified; F12.90 Cannabis use, unspecified, uncomplicated; F17.200 Nicotine dependence, unspecified, uncomplicated; F20.9 Schizophrenia, unspecified; F31.9 Bipolar disorder, unspecified; G40.909 Epilepsy, unspecified, not intractable, without status epilepticus; H54.7 Unspecified visual loss; Z82.49 Family history of ischemic heart disease and other diseases of the circulatory system; Z83.3 Family history of diabetes mellitus; Z87.01 Personal history of pneumonia (recurrent); Z91.19 Patient's noncompliance with other medical treatment and regimen; Y93.89 Activity, other specified; Y99.8 Other external cause status; Y92.002 Bathroom of unspecified non-institutional (private) residence as the place of occurrence of the external cause; Z68.37 Body mass index [BMI] 37.0-37.9, adult; T50.905A Adverse effect of unspecified drugs, medicaments and biological substances, initial encounter; W18.39XA Other fall on same level, initial encounter
CPT/HCPCS: 36415; 70450; 71045; 78452; 80048; 80053; 80061; 80164; 80307; 80320; 81001; 82550; 82607; 82746; 82962; 83036; 83605; 83880; 84443; 84484; 84702; 85025; 85379; 85652; 86141; 87040; 93017; 93886; 94640; 96361; 96365; 96375; 97110; 97116; 97163; 97530; J0153; J0696; J1815; J1956

== ENCOUNTER 2018-03-30 14:23 | Emergency (ER) | payer MEDICAID ==
[~2018-03-30] VITALS: Ht 167.6 cm; Wt 103.9 kg
[~2018-03-30 14:23] MED LIST changes: +CEPH-37 PO; +LISI-711 PO; +MET50T PO; +SERT-135 PO
[2018-03-30 15:25] LABS: Urine Bacteria NONE SEEN /hpf (None Seen); Urine Blood Negative /uL (Negative); Urine Hyaline Cast MOD /lpf (0 - 2); Urine Mucus FEW (None Seen); Urine Specific Gravity 1.014 (1.001-1.035); Urine WBC 2 /hpf (0 - 5)
[2018-03-30 15:34] LABS: Basophils # (auto) 0 uL; Basophils % (auto) 0.7 % (0.0-2.0); Eosinophils # (auto) 0.1 uL; Eosinophils % (auto) 1.3 % (0.0-7.0); Hematocrit 33.6 % (36.0-46.0); Hemoglobin 11.2 g/dL (12.2-16.2); Lymphocytes # (auto) 0.8 uL; Lymphocytes % (auto) 19.7 % (10.0-50.0); Mean Corpuscular Hemoglobin 29.7 pg (28.0-32.0); Mean Corpuscular Hgb Conc. 33.3 g/dL (32.0-36.0); Monocytes # (auto) 0.4 uL; Monocytes % (auto) 9.8 % (0.0-12.0); Neutrophils # (auto) 2.8 uL; Neutrophils % (auto) 68.5 % (37.0-80.0); Platelet Count (auto) 187 10^3/uL (140-450); Red Blood Cells 3.77 10^6/uL (4.0-5.20); Red Cell Distribution Width 18.3 % (11.8-14.3); White Blood Cell 4.1 10^3/uL (4.4-10.8)
[2018-03-30 15:52] LABS: Alcohol, Urine < 3.0 mg/dL (0-5); Amphetamine Screen, Urine NEGATIVE (NEGATIVE); Barbiturate Scree,Urine NEGATIVE (NEGATIVE); Benzodiazephine Screen, Urine NEGATIVE (NEGATIVE); Cannabinoid Screen, Urine NEGATIVE (NEGATIVE); Cocaine Screen, Urine NEGATIVE (NEGATIVE); Opiate Scree,Urine NEGATIVE (NEGATIVE); Phencyclidine Screen, Urine NEGATIVE (NEGATIVE)
[2018-03-30 15:55] LABS: Albumin 3.1 g/dL (3.4-5.0); BUN/Creatinine Ratio 13.6; Bilirubin, Total 0.4 mg/dL (0.2-1.0); Calcium 8.5 mg/dL (8.5-10.1); Magnesium 2.9 mg/dL (1.6-2.6); Potassium 3.9 mmol/L (3.5-5.1); Total Protein 7.3 g/dL (6.4-8.2)
[2018-03-30 18:30] VITALS: BP 106/61
[2018-03-30] MEDS ORDERED: LORazepam 2MG/ML-1ML VIAL IV ONE (19:30)
== END 2018-03-30 19:55 | disposition home or self-care (01) ==
LOC: ER 14:23
DX: R56.9 Unspecified convulsions (principal); Z91.14 Patient's other noncompliance with medication regimen; I13.0 Hypertensive heart and chronic kidney disease with heart failure and stage 1 through stage 4 chronic kidney disease, or unspecified chronic kidney disease; I50.9 Heart failure, unspecified; N18.9 Chronic kidney disease, unspecified; E11.22 Type 2 diabetes mellitus with diabetic chronic kidney disease; E78.5 Hyperlipidemia, unspecified
CPT/HCPCS: 36415; 70450; 80053; 80307; 81001; 83735; 83880; 84484; 85025; 93005; 96374; 99285; J2060; J7030